=== PATIENT | male | born 2000 | race Caucasian/White ===

== ENCOUNTER 2025-05-02 17:35 | Emergency (ER) | payer BC, MEDICAID ==
[~2025-05-02] VITALS: Ht 185.4 cm; Wt 126.0 kg
[2025-05-02] MEDS: TETANUS/DIPHTH/ACEL. PERTUSSIS 0.5 ML SYR IM ONE (18:10)
[2025-05-02 18:34] VITALS: BP 167/96; TEMP 98.3; O2SAT 100
[2025-05-02] MEDS: LIDOCAINE 1% MDV 20 ML VIAL SC ONE (20:35)
== END 2025-05-02 22:05 | disposition home or self-care (01) ==
LOC: M ED 17:35
DX: S61.412A Laceration without foreign body of left hand, initial encounter (principal); S61.311A Laceration without foreign body of left index finger with damage to nail, initial encounter; W26.8XXA Contact with other sharp object(s), not elsewhere classified, initial encounter; F90.9 Attention-deficit hyperactivity disorder, unspecified type; Y92.009 Unspecified place in unspecified non-institutional (private) residence as the place of occurrence of the external cause; Y93.89 Activity, other specified; Y99.9 Unspecified external cause status; Z88.8 Allergy status to other drugs, medicaments and biological substances; Z23 Encounter for immunization